=== PATIENT | female | born 1975 | race Two or more races ===

== ENCOUNTER 2019-11-10 08:35 | Day surgery (SDC) | payer OTHER ==
[2019-11-10] VITALS (11 sets, daily range): BP systolic 120–130; BP diastolic 64–76
[~2019-11-10] VITALS: Ht 170.2 cm; Wt 86.2 kg
--- NOTE | 2019-11-10 07:58 | Pre-Procedure Note/Attestation ---
Pre-Procedure Note/Attestation Complete Prior to Procedure Planned Procedure: right Procedure Narrative: hip arthroscopy, labral repair Indications for Procedure Pre-Operative Diagnosis: right hip labral tear Attestation I attest that I discussed the nature of the procedure; its benefits; risks and complications; and alternatives (and the risks and benefits of such alternatives ), prior to the procedure, with the patient (or the patient's legal sales representative [place] [employer]). I attest that, if there was a reasonable possibility of needing a blood transfusion, the patient (or the patient's legal sales representative [place] [employer]) was given the [facility] standardized written summary, pursuant to the Alessandro Ringwood Blood Safety Act ([place] Health and Safety Code # 1645, as amended). I attest that I re-evaluated the patient just prior to the surgery and that there has been no change in the patient's H&P, except as documented below: Ángel Lee MD November 10, 2019 07:58
--- NOTE | 2019-11-10 07:59 | Operative Note - PDOC ---
Operative Note Operative Note Pre-op Diagnosis: right hip labral tear Procedure: see op report Post-op Diagnosis: same as pre-op plus Operative Findings: consistent w/pre-op dx studies Anesthesia: regional Specimen: none Complications: none Condition: stable Estimated Blood Loss: none Implant(s) used?: Yes Ángel Lee MD November 10, 2019 07:59
[~2019-11-10 08:35] MED LIST: ADDERAL20 MG ORAL; D5 1/2NS 1,000 ML IV SCH; HYDROcodone/Acetamin 5/325 tab ORAL PRN; HYDROmorphone 1mg/ml Carpuject SUBQ PRN; Tylenol #3 tab (300mg/30mg) ORAL PRN; ceFAZolin 1gm IVPB IVPB ONE; celeBREX 200mg Cap **SURGERY PATIENTS ONLY ORAL ONE; oxyCONTIN 20mg tab ORAL ONE
[2019-11-10] MEDS ORDERED: oxyCONTIN 20mg tab ORAL ONE (09:31)
[2019-11-10] MEDS ORDERED: celeBREX 200mg Cap **SURGERY PATIENTS ONLY ORAL ONE (09:31)
[2019-11-10] MEDS ORDERED: Propofol 200mg/20ml IV ONE ×3 (11:05→13:23)
[2019-11-10] MEDS ORDERED: Sodium Chloride 10ml vial INJ ONE (11:05)
[2019-11-10] MEDS ORDERED: Lidocaine 1% MPF 10mg/ml 5ml ONE (11:05)
[2019-11-10] MEDS ORDERED: LR 1000ml 1,000 ML IVLG SCH (11:06)
--- NOTE | 2019-11-10 11:10 | Anethesia Preoperative Eval ---
Anesthesia Pre-op PMH/ROS General Date of Evaluation: November 10, 2019 Time of Evaluation: 11:19 Anesthesiologist: Srinivas ASA Score: ASA 2 Mallampati Score Class I : Soft palate, uvula, fauces, pillars visible Class II: Soft palate, uvula, fauces visible Class III: Soft palate, base of uvula visible Class IV: Only hard plate visible Mallampati Classification: Class II Surgeon: Jesus Diagnosis: Right Hip Pain Surgical Procedure: Right Hip Arthroscopy Anesthesia History: none Family History: no anesthesia problems Allergies: Coded Allergies: No Known Allergies (Unverified , 11/09/19) Medications: see eMAR Patient NPO?: Yes Past Medical History Gastrointestinal/Genitourinary: Reports: GERD, other - Colitis Other: obesity - BMI 31 PSxH Narrative: L Shoulder SX Anesthesia Pre-op Phys. Exam Physician Exam Last Vital Signs Date Time Temp Pulse Resp B/P (MAP) Pulse Ox O2 Delivery O2 Flow Rate FiO2 11/10/19 09:17 Room Air 11/10/19 09:12 98.1 83 18 126/71 97 Constitutional: NAD Neurologic: CN 2-12 intact Cardiovascular: RRR Respiratory: CTA Gastrointestinal: S/NT/ND Airway Exam Mallampati Score: Class II MO: limited ROM: limited Teeth: intact Anesthesia Pre-op A/P Labs Urine Test Test 11/10/19 08:50 Urine HCG, Qualitative Negative (NEGATIVE) Risk Assessment & Plan Assessment: ASA 2 Plan: GA, SED, GlideScope Status Change Before Surgery: No Pre-Antibiotics Dru Grams Ancef IV Given Within 1 Hr of Incision: Yes Time Given: 11:46 Ray Espino MD November 10, 2019 11:10
--- NOTE | 2019-11-10 11:11 | Immediate Post-Op Evaluation ---
Immediate Post-Op Evalulation Immediate Post-Op Evalulation Procedure: R Hip Arthroscopy Date of Evaluation: November 10, 2019 Time of Evaluation: 14:30 IV Fluids: 1200 LR Blood Products: 0 Estimated Blood Loss: 10 Urinary Output: 0 Blood Pressure Systolic: 124 Blood Pressure Diastolic: 64 Pulse Rate: 67 Respiratory Rate: 16 O2 Sat by Pulse Oximetry: 100 Temperature (Fahrenheit): 97.6 Pain Score (1-10): 2 Nausea: No Vomiting: No Complications 0 Patient Status: awake, reacts, patent, extubated, none Hydration Status: adequate Dru Grams Ancef IV Given Within 1 Hr of Incision: Yes Time Given: 11:46 Ray Espino MD November 10, 2019 11:11
--- NOTE | 2019-11-10 11:11 | 48 Hour Post Anesthesia Eval ---
Post Anesthesia Evaluation Procedure: R Hip Arthroscopy Date of Evaluation: November 10, 2019 Time of Evaluation: 16:34 Blood Pressure Systolic: 123 0: 65 Pulse Rate: 64 Respiratory Rate: 18 Temperature (Fahrenheit): 98 O2 Sat by Pulse Oximetry: 100 Airway: patent Nausea: No Vomiting: No Pain Intensity: 2 Hydration Status: adequate Cardiopulmonary Status: Stable Mental Status/LOC: patient returned to baseline Follow-up Care/Observations: 0 Post-Anesthesia Complications: 0 Follow-up care needed: ready to discharge Ray Espino MD November 10, 2019 11:11
[2019-11-10] MEDS ORDERED: Acetaminophen (Non formulary) 100 ML IV ONE (11:15)
[2019-11-10] MEDS ORDERED: Metoclopramide 10mg/2ml Inj IVP PRN (11:15)
[2019-11-10] MEDS ORDERED: Ketorolac 30mg Inj IV PRN ×2 (11:15)
[2019-11-10] MEDS ORDERED: Ketorolac 30mg Inj ONE (11:15)
[2019-11-10] MEDS ORDERED: EPINEPHrine 1mg/1ml Amp ONE (11:15)
[2019-11-10] MEDS ORDERED: oxyCODONE HCL/Acetaminophen 5/325mg ORAL PRN (11:15)
[2019-11-10] MEDS ORDERED: Meperidine 25mg/0.5ml Inj (FOR RIGORS ONLY) IV PRN (11:15)
[2019-11-10] MEDS ORDERED: Kenalog-40 1ml Vial ONE (11:15)
[2019-11-10] MEDS ORDERED: Midazolam 2mg/2ml Inj IVP PRN (11:15)
[2019-11-10] MEDS ORDERED: DiphenhydrAMINE 50mg/ml Inj IVP PRN (11:15)
[2019-11-10] MEDS ORDERED: Duramorph PF 5mg/10ml amp ONE (11:15)
[2019-11-10] MEDS ORDERED: HYDROcodone/Acetamin 5/325 tab ORAL PRN (11:15)
[2019-11-10] MEDS ORDERED: LORazepam Inj 2mg/ml 1ml IV PRN (11:15)
[2019-11-10] MEDS ORDERED: Atropine Sulfate 0.4mg/ml inj IVP PRN (11:15)
[2019-11-10] MEDS ORDERED: Hydromorphone 0.5mg/0.5ml inj IVP PRN (11:15)
[2019-11-10] MEDS ORDERED: HYDROcodone/Acetamin 7.5/325 tab ORAL PRN (11:15)
[2019-11-10] MEDS ORDERED: Labetalol 5mg/ml 20ml vial IV PRN (11:15)
[2019-11-10] MEDS ORDERED: fentaNYL 100 mcg/2 mL IV PRN (11:15)
[2019-11-10] MEDS ORDERED: Lidocaine 1% 10mg/ml/Epi 0.005mg/ml 30ml vial INJ ONE (11:16)
[2019-11-10] MEDS ORDERED: Bupivacaine 0.25% Inj 30ml INJ ONE (11:16)
[2019-11-10] MEDS ORDERED: Dexamethasone 4mg/ml vial ONE (11:16)
[2019-11-10] MEDS ORDERED: fentaNYL 100 mcg/2 mL IV ONE (11:17)
[2019-11-10] MEDS ORDERED: Lidocaine 1% Plain 30 ml INJ ONE ×2 (11:50→13:23)
[2019-11-10] MEDS ORDERED: NS Irrig 2000ml IRRIG ONE (12:27)
[2019-11-10] MEDS ORDERED: Glycopyrrolate 0.2mg/ml 1ml Vial ONE (13:53)
--- NOTE | 2019-11-10 17:55 | Diagnostic Imaging Report ---
INDICATION: Pain, intraoperative TECHNIQUE: Intraoperative imaging during right hip arthroscopy Fluoroscopy time: 45.5 seconds Total dose: 0.83114 mGym2 Total number of images: 8 COMPARISON: None FINDINGS: Intraoperative images document injection of gas into the right hip joint space and resultant distention. Abdomen images document placement of what is presumably an arthroscope. IMPRESSION: Intraoperative imaging, as described
--- NOTE | 2019-11-10 22:14 | Operative Note - Dictated ---
DATE OF OPERATION: 11/10/2019 PREOP DIAGNOSIS: Right hip traumatic labral tear. POSTOP DIAGNOSIS: Right hip traumatic labral tear. PROCEDURES: 1. Right hip diagnostic arthroscopy, synovectomy. 2. Right hip arthroscopic labral repair. 3. Right hip chondroplasty. SURGEON: Ángel Lee M.D. ANESTHESIA: General. CLINICAL INDICATION FOR PROCEDURE: A pleasant 43-year-old female who sustained traumatic labral tear and significant pain discomfort, elected to undergo right hip arthroscopic labral stabilization after a failed conservative treatment. Risks, limitations, expectations, and complications of the procedure were discussed in detail. All questions addressed. DESCRIPTION OF PROCEDURE: After informed consent was obtained, the patient was brought to the operating room. The patient was placed under general anesthesia. Both extremities were padded and the patient was then placed on fracture table. Care was taken to pad all the extremities. Using fluoroscopy, right hip was distracted and traction time was then monitored. Once the right hip was prepped and draped in a sterile manner, Ancef was administered. Time-out was performed. The lateral guidewire was then placed along with the flexible wire into the joint. Sequential dilation to accommodate the arthroscopy, medial portal was performed. Once that was done, using inside-out technique to outside-in technique, the second anterolateral portal was established. Using combination of the ArthroCare and shaver, Synovectomy was performed to better visualize the labrum as well as allow mobilization and viewing and working portals. Of note, there was a tear of the posterior superior labrum with some softening of the chondrolabral junction. Debridement of the labrum along with the cartilage was performed. Once the peripheral of the labrum was identified, 3 sutures were then placed to further secure back the labrum down to bone. Once the labral repair was completed, the hip was removed from traction. The hip was reduced and the traction seal was recreated. Once that was completed, the portal sites were closed with 3-0 Monocryl sutures. Steri-Strips and sterile dressing were applied. The patient was awoken and taken to recovery room with stable vital signs. EBL: None. COMPLICATION: None. SPECIMENS: None. IMPLANTS: Include 3 Arthrex PushLock anchors. Ángel Lee M.D. DR: DOTTIE JOB#: [id number] CC:
== END 2019-11-10 16:50 | disposition home or self-care (01) ==
LOC: SUR 08:35
DX: S73.101A Unspecified sprain of right hip, initial encounter (principal); K21.9 Gastro-esophageal reflux disease without esophagitis; E66.9 Obesity, unspecified; Z68.29 Body mass index [BMI] 29.0-29.9, adult; X58.XXXA Exposure to other specified factors, initial encounter; Y92.9 Unspecified place or not applicable
CPT/HCPCS: 29916; 73501; 76000; 81025; 94003; C1713; J0131; J0171; J0690; J1100; J1200; J1885; J2001; J2250; J2405; J2704; J3010; J3301; J3490; 94150